=== PATIENT | male | born 1955 | race Caucasian/White ===

== ENCOUNTER 2022-06-20 19:33 | Emergency (ER) | payer MEDICARE ==
[2022-06-20 20:30] LABS: HEMOGLOBIN 14.1 gm/dl (14.0-17.5); RED BLOOD COUNT 4.73 M/UL (4.20-5.50); WHITE BLOOD COUNT 6.2 K/UL (4.5-11.0)
[2022-06-20 20:47] LABS: BUN/CREATININE RATIO 13 (0-10)
== END 2022-06-20 23:45 | disposition home or self-care (01) ==
LOC: ER1 19:33
PROVIDERS: Physician Assistant
DX: R10.9 Unspecified abdominal pain (principal); I11.9 Hypertensive heart disease without heart failure; E11.9 Type 2 diabetes mellitus without complications; F17.220 Nicotine dependence, chewing tobacco, uncomplicated; Z79.82 Long term (current) use of aspirin
CPT/HCPCS: 80053; 81001; 85025; 87086; 99284